=== PATIENT | male | born 1960 | race Caucasian/White ===

== ENCOUNTER 2017-10-18 04:32 | Observation (INO) | payer MEDICARE, OTHER, MEDICAID ==
[2017-10-18] MEDS ORDERED: LORAZEPAM 2 MG INJ (04:37)
[2017-10-18] MEDS: ALBUTEROL 0.083% (NEB) 2.5 MG/3 ML AMP HHN ×2 (04:50→07:41)
[2017-10-18] MEDS: IPRATROPIUM (NEB) 0.5 MG/2.5 ML AMP HHN (04:50)
[2017-10-18 04:55] LABS: Allen Test ACCEPTAB; Arterial Base Excess -2.6 mmol/L (-3.0-3); Arterial Blood Gas Oxygen Sat 94.1 mmHG (95.0-98.0); Arterial HCO3 21.2 mmol/L (22.0-26.0); Arterial MetHb 0.2 % (0.0-1.5); Arterial Total Hemglobin 11.7 g/dl (12.0-18.0); Arterial pCO2 33.4 mmhg (35-45); Blood Gas IEPAP 20 /5; MODE MASK - BIPAP; Site Right Radial
[2017-10-18] MEDS: LORAZEPAM 2 MG INJ IV (04:59)
[2017-10-18] MEDS: SODIUM CHLORIDE 0.9% 1L BAG IV* (05:00)
[2017-10-18] MEDS: morphine 4 MG/ML VIAL IV (05:00)
[2017-10-18] MEDS: ONDANSETRON 4 MG INJ IV ×3 (05:00→23:22)
[2017-10-18] MEDS: CEFEPIME 2GM/50 ML (PMX) 50 ML IVPB (05:01)
[2017-10-18 05:02] LABS: ADD MAN DIFF? NO
[2017-10-18 05:12] LABS: WHITE BLOOD COUNT 7.7 10^3/ul (4.8-10.8)
[2017-10-18 05:12] LABS: ABNORMAL IP MESSAGE 1; BASOPHILS % 0.5 % (0.0-2.0); EOSINOPHILS % 0.4 % (0.0-7.0); HEMATOCRIT 30.9 % (42.0-52.0); LYMPHOCYTES # 0.9 10^3/ul (0.8-2.9); LYMPHOCYTES % 11.6 % (15.0-51.0); MEAN CORPUSCULAR HGB CONC 35.6 g/dl (32.0-37.0); MEAN CORPUSCULAR VOLUME 92.8 fl (82.0-101.0); MEAN PLATELET VOLUME 12.2 fl (7.4-10.4); MONOCYTE # 0.7 10^3/ul (0.3-0.9); MONOCYTES % 9.5 % (0.0-11.0); NEUTROPHILS % 77.6 % (39.0-77.0); PLATELET COUNT 92 10^3/UL (140-415); POSITIVE DIFF @See below; RED BLOOD COUNT 3.33 10^6/ul (4.70-6.10); RED CELL DISTRIBUTION WIDTH 13.4 % (11.5-14.5)
[2017-10-18] MEDS ORDERED: LABETALOL 100MG INJ (05:13)
[2017-10-18] MEDS: LABETALOL HCL 20MG INJ IV (05:15)
[2017-10-18] MEDS: IOHEXOL 350MG/ML 50 ML BTL (05:15)
[2017-10-18] MEDS: IOHEXOL 100 ML (05:15)
[2017-10-18] MEDS: SOD CHLORIDE 0.9% 100 ML (05:15)
[2017-10-18] MEDS: hydrALAzine 20 MG INJ IV ×2 (05:22→19:21)
[2017-10-18 05:38] LABS: ANION GAP 28 (8-16); BLOOD UREA NITROGEN 61 mg/dl (7-20); CALCIUM 9.8 mg/dl (8.4-10.2); CARBON DIOXIDE 24 mmol/L (21-31); CHLORIDE 100 mmol/L (97-110); CREATINE KINASE 563 IU/L (23-200); CREATININE 6.33 mg/dl (0.61-1.24); GLUCOSE 101 mg/dl (70-220); POTASSIUM 4.8 mmol/L (3.5-5.1); SODIUM 147 mmol/L (135-144)
[2017-10-18 05:41] LABS: INR 1.26; PARTIAL THROMBOPLASTIN TIME 29.1 Sec (25.0-35.0); PT RATIO 1.3
[2017-10-18 05:50] LABS: CK INDEX 1.1
[2017-10-18 05:54] LABS: CK-MB 5.95 ng/ml (0.0-2.4)
[2017-10-18 05:59] LABS: LACTIC ACID 1.7 mmol/L (0.5-2.0); LIPASE 47 U/L (23-300)
[2017-10-18 06:06] LABS: B-TYPE NATRIURETIC PEPTIDE 51300 PG/ML (0-125)
[2017-10-18] MEDS ORDERED: ONDANSETRON 4 MG INJ IV (07:30)
[2017-10-18] MEDS ORDERED: ACETAMINOPHEN 325 MG TAB PO (07:30)
[2017-10-18 08:09] LABS: LACTIC ACID 1.2 mmol/L (0.5-2.0)
[2017-10-18 09:53] LABS: LACTIC ACID 0.9 mmol/L (0.5-2.0)
[2017-10-18] MEDS ORDERED: VANCOMYCIN IV PER PHARMACY XX (10:00)
[2017-10-18] MEDS ORDERED: LORAZEPAM 2 MG INJ IV (10:00)
[2017-10-18] MEDS ORDERED: NACL 0.9% 3 ML SYG IV (10:00)
[2017-10-18] MEDS ORDERED: BISACODYL (EC) 5 MG TAB PO (10:00)
[2017-10-18] MEDS ORDERED: DOCUSATE SODIUM 100 MG CAP PO (10:00)
[2017-10-18] MEDS ORDERED: CLONIDINE 0.3 MG/24 HR PATCH TRANSDERM (10:00)
[2017-10-18] MEDS: ASPIRIN 81 MG TAB PO (10:00)
[2017-10-18] MEDS ORDERED: LABETALOL HCL 20MG INJ IV (10:00)
[2017-10-18] MEDS ORDERED: VALSARTAN 320 MG PO (10:00)
[2017-10-18 10:17] LABS: ADD UMIC YES; UR ASCORBIC ACID NEGATIVE (NEGATIVE); UR BILIRUBIN (Dip) NEGATIVE (NEGATIVE); UR BLOOD (Dip) 1+ mg/dL (NEGATIVE); UR CLARITY CLEAR (CLEAR); UR COLOR YELLOW (YELLOW); UR GLUCOSE (Dip) NEGATIVE (NEGATIVE); UR KETONES (Dip) NEGATIVE (NEGATIVE); UR LEUKOCYTE ESTERASE (Dip) NEGATIVE Leu/ul (NEGATIVE); UR NITRITE (Dip) NEGATIVE (NEGATIVE); UR RBC 8 /HPF (0-5); UR SPECIFIC GRAVITY (Dip) 1.014 (1.003-1.030); UR TOTAL PROTEIN (Dip) 3+ mg/dl (NEGATIVE); UR UROBILINOGEN (Dip) NEGATIVE (NEGATIVE); UR WBC 1 /HPF (0-5)
[2017-10-18] MEDS ORDERED: ALBUTEROL/IPRATROPIUM (NEB) 3 ML AMP HHN (10:30)
[2017-10-18] MEDS: ISOSORBIDE MONONITRATE(SR)30 MG TAB PO (11:49)
[2017-10-18] MEDS: MINOXIDIL 2.5 MG TAB PO (11:49)
[2017-10-18] MEDS: AMLODIPINE 10 MG TAB PO (11:49)
[2017-10-18] MEDS ORDERED: PIPER-TAZO 3.375 GM IV (PMX) 100 ML IVPB (12:00)
[2017-10-18] MEDS: PANTOPRAZOLE (EC) 40 MG TAB PO (13:03)
[2017-10-18] MEDS: PIPER-TAZO 2.25 GM (PMX) 50 ML IVPB ×2 (13:10→22:14)
[2017-10-18] MEDS: BUDESONIDE (NEB) 0.5MG/2ML AMP HHN ×2 (13:26→19:45)
[2017-10-18] MEDS: ALBUTEROL/IPRATROPIUM (NEB) 3 ML AMP HHN ×2 (13:26→19:45)
[2017-10-18] MEDS: VANCOMYCIN 1 GM in 250 ML IVPB (13:26)
[2017-10-18] MEDS: ACETAMINOPHEN 325 MG TAB PO ×2 (13:28→20:48)
[2017-10-18] MEDS: VALSARTAN 160 MG TAB PO (15:08)
[2017-10-18 17:16] LABS: CREATINE KINASE 392 IU/L (23-200)
[2017-10-18 17:29] LABS: CK INDEX 0.7; TROPONIN-I 0.079 ng/ml (0.00-0.12)
[2017-10-18 17:30] LABS: CK-MB 2.55 ng/ml (0.0-2.4)
[2017-10-18 20:12] LABS: HEPATITIS B SURFACE ANTIGEN NEGATIVE (NEGATIVE)
[2017-10-18 20:29] LABS: HEPATITIS B SURFACE ANTIBODY POSITIVE (NEGATIVE)
[2017-10-18] MEDS: morphine 2 MG INJ IV ×2 (20:47→23:23)
[2017-10-18] MEDS: LABETALOL 200 MG TAB PO (20:51)
[2017-10-19] MEDS: ONDANSETRON 4 MG INJ IV (03:57)
[2017-10-19] MEDS: morphine 2 MG INJ IV ×3 (03:57→14:26)
[2017-10-19 05:28] LABS: AADO2 Arterial 89.5 mmHg (7.0-24.0); Allen Test ACCEPTAB; Arterial Base Excess 0.8 mmol/L (-3.0-3); Arterial Blood Gas Oxygen Sat 98.5 mmHG (95.0-98.0); Arterial COHb 0.1 % (0.0-3.0); Arterial Fraction of Oxyhgb 98.1 % (93.0-99.0); Arterial HCO3 27.3 mmol/L (22.0-26.0); Arterial MetHb 0.3 % (0.0-1.5); Arterial Total Hemglobin 11.4 g/dl (12.0-18.0); Arterial pCO2 51.8 mmhg (35-45); Blood Gas IEPAP 15/5; MODE MASK - BIPAP; Site Right Radial
[2017-10-19] MEDS: PANTOPRAZOLE (EC) 40 MG TAB PO (05:33)
[2017-10-19] MEDS: PIPER-TAZO 2.25 GM (PMX) 50 ML IVPB ×2 (05:33→22:22)
[2017-10-19] MEDS ORDERED: NON-FORMULARY/PATIENT OWN MED (Esomeprazole Magnesium 40 MG) PO (07:00)
[2017-10-19 07:45] LABS: ADD MAN DIFF? NO
[2017-10-19 07:52] LABS: ABNORMAL IP MESSAGE 1; BASOPHILS % 0.5 % (0.0-2.0); HEMATOCRIT 28.2 % (42.0-52.0); HEMOGLOBIN 9.6 g/dl (14.0-18.0); LYMPHOCYTES # 0.8 10^3/ul (0.8-2.9); LYMPHOCYTES % 18.8 % (15.0-51.0); MEAN CORPUSCULAR HEMOGLOBIN 32.4 pg (29.0-33.0); MEAN CORPUSCULAR VOLUME 95.3 fl (82.0-101.0); MEAN PLATELET VOLUME 10.9 fl (7.4-10.4); MONOCYTE # 0.6 10^3/ul (0.3-0.9); MONOCYTES % 13.8 % (0.0-11.0); NEUTROPHIL # 2.8 10^3/ul (1.6-7.5); NEUTROPHILS % 65.9 % (39.0-77.0); POSITIVE DIFF @See below; RED BLOOD COUNT 2.96 10^6/ul (4.70-6.10); RED CELL DISTRIBUTION WIDTH 13.5 % (11.5-14.5)
[2017-10-19 07:52] LABS: WHITE BLOOD COUNT 4.2 10^3/ul (4.8-10.8)
[2017-10-19] MEDS: ASPIRIN 81 MG TAB PO (07:57)
[2017-10-19] MEDS: AMLODIPINE 10 MG TAB PO (07:57)
[2017-10-19] MEDS: MINOXIDIL 2.5 MG TAB PO (07:58)
[2017-10-19] MEDS: LABETALOL 200 MG TAB PO ×2 (07:58→22:07)
[2017-10-19] MEDS: ISOSORBIDE MONONITRATE(SR)30 MG TAB PO (07:58)
[2017-10-19] MEDS: VALSARTAN 160 MG TAB PO (07:58)
[2017-10-19] MEDS: ALBUTEROL/IPRATROPIUM (NEB) 3 ML AMP HHN ×3 (08:02→20:00)
[2017-10-19] MEDS: BUDESONIDE (NEB) 0.5MG/2ML AMP HHN ×2 (08:02→20:00)
[2017-10-19 08:03] LABS: PLATELET COUNT 70 10^3/UL (140-415)
[2017-10-19 08:10] LABS: LACTIC ACID 1.1 mmol/L (0.5-2.0)
[2017-10-19 08:16] LABS: ANION GAP 22 (8-16); BLOOD UREA NITROGEN 47 mg/dl (7-20); CALCIUM 8.4 mg/dl (8.4-10.2); CARBON DIOXIDE 26 mmol/L (21-31); CHLORIDE 100 mmol/L (97-110); CREATININE 4.68 mg/dl (0.61-1.24); GLUCOSE 78 mg/dl (70-220); POTASSIUM 4.9 mmol/L (3.5-5.1); SODIUM 143 mmol/L (135-144)
[2017-10-19] MEDS: HYDROCODONE/APAP (5/325) TAB PO (16:44)
[2017-10-19] MEDS: HYDROmorphONE 0.5 MG/0.5 ML SYG IV ×2 (18:04→22:16)
[2017-10-19] MEDS ORDERED: VANCOMYCIN IV PER PHARMACY XX (19:30)
[2017-10-19] MEDS ORDERED: PIPER-TAZO 3.375 GM IV (PMX) 100 ML IVPB (22:00)
[2017-10-20] MEDS: ACETAMINOPHEN 325 MG TAB PO (05:33)
[2017-10-20] MEDS: PANTOPRAZOLE (EC) 40 MG TAB PO (05:33)
[2017-10-20] MEDS: PIPER-TAZO 2.25 GM (PMX) 50 ML IVPB (05:34)
[2017-10-20] MEDS: HYDROmorphONE 0.5 MG/0.5 ML SYG IV ×2 (05:44→09:02)
[2017-10-20] MEDS: ALBUTEROL/IPRATROPIUM (NEB) 3 ML AMP HHN (07:42)
[2017-10-20] MEDS: BUDESONIDE (NEB) 0.5MG/2ML AMP HHN (07:52)
[2017-10-20] MEDS: ASPIRIN 81 MG TAB PO (08:56)
[2017-10-20] MEDS: VALSARTAN 160 MG TAB PO (08:57)
[2017-10-20] MEDS: LABETALOL 200 MG TAB PO (08:57)
[2017-10-20] MEDS: AMLODIPINE 10 MG TAB PO (08:58)
[2017-10-20] MEDS: ISOSORBIDE MONONITRATE(SR)30 MG TAB PO (08:58)
[2017-10-20] MEDS: MINOXIDIL 2.5 MG TAB PO (09:00)
[2017-10-20 11:08] LABS: VANCOMYCIN,RANDOM < 5.0 ug/ml
== END 2017-10-20 15:15 | disposition home or self-care (01) ==
LOC: E/R 04:32 → TEL 07:21
DX: E87.70 Fluid overload, unspecified (principal); I12.0 Hypertensive chronic kidney disease with stage 5 chronic kidney disease or end stage renal disease; N18.6 End stage renal disease; Z99.2 Dependence on renal dialysis; I25.10 Atherosclerotic heart disease of native coronary artery without angina pectoris; Z95.5 Presence of coronary angioplasty implant and graft; E78.00 Pure hypercholesterolemia, unspecified; Z79.82 Long term (current) use of aspirin; J44.9 Chronic obstructive pulmonary disease, unspecified; E78.5 Hyperlipidemia, unspecified
CPT/HCPCS: 36415; 36600; 71045; 71250; 74176; 78582; 80048; 80202; 81001; 82550; 82553; 82803; 83605; 83690; 83735; 83880; 84484; 85025; 85610; 85730; 86706; 87086; 87340; 87400; 90935; 93005; 93306; 93970; 94640; 94644; 94660; 94664; 96374; 96375; 96376; 99291-25; G0378